=== PATIENT | female | born 1965 | race Caucasian/White ===

== ENCOUNTER → 2018-04-03 | Outpatient (CLI) | payer OTHER | END | disposition home or self-care (01) | LOC: RAD 10:48 | PROVIDERS: ATTEND Nurse Practitioner Family | DX: D25.9 Leiomyoma of uterus, unspecified (principal); N92.4 Excessive bleeding in the premenopausal period | CPT/HCPCS: 76830 ==

== ENCOUNTER 2019-05-14 13:26 | Outpatient (CLI) | payer BC | END 2019-05-14 23:59 | disposition home or self-care (01) | LOC: CFH 13:26 | PROVIDERS: ATTEND Nurse Practitioner Family | DX: D17.71 Benign lipomatous neoplasm of kidney (principal); N28.1 Cyst of kidney, acquired; M47.816 Spondylosis without myelopathy or radiculopathy, lumbar region | CPT/HCPCS: 74170; 82565; Q9967 ==

== ENCOUNTER 2021-03-11 07:13 | Day surgery (SDC) | payer BC, OTHER ==
[~2021-03-11] VITALS: Ht 167.6 cm; Wt 77.6 kg
[2021-03-11] MEDS ORDERED: ALBUTEROL INH (07:44)
[2021-03-11] MEDS ORDERED: QUIN20TA17 PO (07:44)
[2021-03-11] MEDS ORDERED: HYDR12.517 PO (07:44)
[2021-03-11] MEDS ORDERED: LEVO100T5 PO (07:44)
[2021-03-11] MEDS ORDERED: ATOR10TA9 PO (07:44)
[2021-03-11] MEDS ORDERED: LORA10TA75 PO (07:44)
[2021-03-11 07:46] VITALS: BP 130/88
[2021-03-11] MEDS ORDERED: SODIUM CHLORIDE 0.9% 1,000 ML IV SCH (08:00)
[2021-03-11 08:18] LABS: INTERNATIONAL NORMALIZED RATIO 0.91 (0.93-1.1); PROTHROMBIN TIME 9.8 Seconds (9.6-11.5)
[2021-03-11] MEDS ORDERED: LIDOCAINE-MPF 1%, 5ML ONE (09:35)
[2021-03-11] MEDS ORDERED: FENTANYL PF 100 MCG/2ML ONE (09:46)
[2021-03-11] MEDS ORDERED: NALOXONE 1 MG/ML, 2ML ONE (09:46)
[2021-03-11] MEDS ORDERED: FLUMAZENIL 0.1 MG/1 ML, 5ML ONE (09:46)
[2021-03-11] MEDS ORDERED: MIDAZOLAM 1 MG/ML, 5ML ONE (09:46)
== END 2021-03-11 11:20 | disposition home or self-care (01) ==
LOC: OUT 07:13 → EDSTATUS 09:30 → OUT 11:20
PROVIDERS: ATTEND Internal Medicine Nephrology
DX: D17.71 Benign lipomatous neoplasm of kidney (principal); N28.1 Cyst of kidney, acquired; E11.22 Type 2 diabetes mellitus with diabetic chronic kidney disease; I12.9 Hypertensive chronic kidney disease with stage 1 through stage 4 chronic kidney disease, or unspecified chronic kidney disease; N18.1 Chronic kidney disease, stage 1; D64.9 Anemia, unspecified; J45.909 Unspecified asthma, uncomplicated; E78.5 Hyperlipidemia, unspecified; E03.9 Hypothyroidism, unspecified; Z79.01 Long term (current) use of anticoagulants; Z79.890 Hormone replacement therapy; Z79.899 Other long term (current) drug therapy; Z88.0 Allergy status to penicillin; Z88.8 Allergy status to other drugs, medicaments and biological substances; Z84.1 Family history of disorders of kidney and ureter
CPT/HCPCS: 36415; 50200; 77012; 85610; 88300; 99156; 99157; J2250; J3010; J7030; J2310